=== PATIENT | female | born 1985 | race Caucasian/White ===

== ENCOUNTER 2020-12-29 12:44 | Inpatient (IN) | payer BC ==
[2020-12-29] MEDS ORDERED: Promethazine HCl 25 MG/ML VIAL IM PRN ×2 (13:10→18:31)
[2020-12-29] MEDS ORDERED: HYDROcodone/Acetaminophen 5/325 mg Tablet PO PRN ×2 (13:10)
[2020-12-29] MEDS ORDERED: Diphenoxylate HCl/Atropine Tablet PO PRN ×2 (13:10)
[2020-12-29] MEDS ORDERED: Misoprostol 200 MCG TAB PR PRN ×2 (13:10→18:47)
[2020-12-29] MEDS ORDERED: Ibuprofen 800 MG TAB PO PRN (13:10)
[2020-12-29] MEDS ORDERED: Butorphanol Tartrate 1 MG/ML VIAL SLOW IVP PRN (13:10)
[2020-12-29] MEDS ORDERED: Lidocaine 1% (PF) 30 ML VIAL SC PRN (13:10)
[2020-12-29] MEDS ORDERED: Acetaminophen 500 MG TAB PO PRN (13:10)
[2020-12-29] MEDS ORDERED: Ondansetron PF 4 MG/2 ML Vial IVP PRN ×3 (13:10→18:47)
[2020-12-29] MEDS ORDERED: Docusate 100 MG CAP PO PRN (13:10)
[2020-12-29] MEDS ORDERED: hydrALAZINE 20 MG/ML VIAL SLOW IVP PRN ×3 (13:10→18:54)
[2020-12-29] MEDS ORDERED: NS / Oxytocin 40 units/1000ml 1,000 ML IV PRN (13:10)
[2020-12-29] MEDS ORDERED: Lactated Ringer's 1,000 ML IV SCH (13:15)
[2020-12-29] MEDS ORDERED: Famotidine/PF 20 mg/2ml Vial SLOW IVP PRN (13:24)
[2020-12-29] MEDS ORDERED: Bicitra 30 ML UDCUP PO PRN (13:24)
[2020-12-29] MEDS ORDERED: Magnesium Sulfate 20 gm/500 ml 20 GM/500 ML BAG ONE (13:34)
[2020-12-29 13:40] LABS: #Eosinphils 0.1 10x3/uL (0.0-0.5); #Monocytes 0.7 10x3/uL (0.0-1.1); %Basophils 0.3 % (0.0-2.0); %Eosinophils 0.5 % (0.0-6.0); %Lymphocytes 15.9 % (18.0-47.0); %Monocytes 5.6 % (0.0-10.0); %Neutrophils 76.1 % (40.0-75.0); Hemoglobin 13.7 g/dL (12.0-15.5); Mean Corpuscular HGB CONC 34.7 g/dL (32.0-36.0); Mean Corpuscular Hemoglobin 31.5 pg (27.0-33.0); Mean Corpuscular Volume 90.8 fl (81.6-98.3); Mean Platelet Volume 10.9 fl (7.4-10.4); Platelet Count 227 10x3/uL (150-450); RBC Distribution Width 14.4 % (11.5-14.5); Red Blood Cell (RBC) Count 4.35 10x6/uL (3.90-5.03); White Blood Cell (WBC) Count 13.2 10x3/uL (3.5-10.5)
[2020-12-29 13:43] LABS: Creatinine, Urine 55.47 mg/dL (47-110)
[2020-12-29] MEDS: hydrALAZINE 20 MG/ML VIAL ONE ×2 (14:00→14:01)
[2020-12-29] MEDS ORDERED: Labetalol HCl 100 MG/20 ML VIAL ONE (14:13)
[2020-12-29 14:28] LABS: Hep B Surf Ag Non-Reactive S/CO (NonReactive); Syphilis Antibody Nonreactive (Nonreactive); Syphilis Antibody Index 0.02 S/CO (<1.00 Non-Reactive)
[2020-12-29 14:34] LABS: HBSAg Index 0.13 S/CO (0-0.99)
[2020-12-29 15:04] VITALS: BMI 37.7
[2020-12-29] MEDS ORDERED: Fentanyl 100 MCG/2 ML VIAL ONE (16:21)
[2020-12-29] MEDS ORDERED: Morphine PF 10 MG/10 ML VIAL ONE (16:21)
[2020-12-29] MEDS ORDERED: Ketorolac Tromethamine 30 MG/ML VIAL ONE (16:21)
[2020-12-29] MEDS ORDERED: Ondansetron PF 4 MG/2 ML Vial ONE (16:21)
[2020-12-29] MEDS ORDERED: Dexamethasone 4 mg/ml Vial ONE (16:21)
[2020-12-29] MEDS ORDERED: Phenylephrine 10 MG/ML VIAL ONE (16:21)
[2020-12-29] MEDS ORDERED: Oxytocin 10 UNITS/ML VIAL ONE (16:26)
[2020-12-29] MEDS ORDERED: CEFAZOLIN 2 GM in Premix Bag 1 BAG IVPB SCH (16:30)
[2020-12-29] MEDS ORDERED: Bicitra 30 ML UDCUP ONE (16:47)
[2020-12-29] MEDS ORDERED: ePHEDrine Sulfate 50 MG/10 ML VIAL ONE (17:09)
[2020-12-29 18:03] LABS: pH (Cord, venous) 7.319 (7.250-7.350)
[2020-12-29] MEDS ORDERED: Erythromycin Base 0.5% Oint 1 GM TUBE ONE (18:23)
[2020-12-29] MEDS ORDERED: Phytonadione Neonatal 1 MG/0.5 ML AMP ONE (18:23)
[2020-12-29] MEDS ORDERED: HYDROmorphone 2 MG/ML VIAL SLOW IVP PRN (18:31)
[2020-12-29] MEDS ORDERED: diphenhydrAMINE 50 MG/ML VIAL IVP PRN (18:31)
[2020-12-29] MEDS ORDERED: L&D-Morphine 4 MG/ML VIAL SLOW IVP PRN (18:31)
[2020-12-29] MEDS ORDERED: Promethazine HCl 25 MG SUPP PR PRN (18:31)
[2020-12-29] MEDS ORDERED: Meperidine HCl/PF 25 MG/ML VIAL SLOW IVP PRN (18:31)
[2020-12-29] MEDS ORDERED: Naloxone HCl 0.4 mg/ml Vial IVP PRN ×2 (18:31)
[2020-12-29] MEDS ORDERED: Ondansetron HCl/PF 4 MG/2 ML Vial IVP PRN (18:31)
[2020-12-29] MEDS ORDERED: Naloxone HCl 0.4 mg/ml Vial IV PRN (18:31)
[2020-12-29] MEDS ORDERED: Eucerin (Mineral Oil/Petrolatum,White) 30 gm Jar TOP PRN (18:31)
[2020-12-29] MEDS ORDERED: Communication Order-Pharmacy FS SCH (18:45)
[2020-12-29] MEDS ORDERED: Ketorolac Tromethamine 30 MG/ML VIAL IVP SCH (18:45)
[2020-12-29] MEDS ORDERED: Lanolin Ointment 7 GM TUBE TOP PRN (18:47)
[2020-12-29] MEDS ORDERED: Bisacodyl 10 MG SUPP PR PRN (18:47)
[2020-12-29] MEDS ORDERED: Simethicone Chewable 80 MG TAB PO PRN (18:47)
[2020-12-29] MEDS ORDERED: diphenhydrAMINE 25 MG CAP PO PRN (18:47)
[2020-12-29] MEDS ORDERED: Acetaminophen 325 MG TAB PO PRN (18:47)
[2020-12-29] MEDS ORDERED: Calcium Gluc 4.6 MEQ/10 ML (100 MG/ML) SLOW IVP PRN (18:47)
[2020-12-29] MEDS ORDERED: Adacel (T-DAP) 0.5 ML SYRINGE IM ONE (18:47)
[2020-12-29] MEDS ORDERED: NS / Oxytocin 40 units/1000ml 1,000 ML IV SCH (19:00)
[2020-12-29] MEDS ORDERED: Magnesium Sulfate 20 gm/500 ml 20 GM/500 ML BAG IVPB SCH (19:00)
[2020-12-29] MEDS: Ketorolac Tromethamine 30 MG/ML VIAL IVP PRN (21:35)
[2020-12-29] MEDS: Docusate Calcium (SURFAK) 240 MG CAP PO SCH (21:35)
[2020-12-29] MEDS: Labetalol 100 MG TAB PO SCH (21:35)
[2020-12-29] MEDS: Ferrous Sulfate 325 MG TAB PO SCH (21:55)
[2020-12-30] MEDS: Ketorolac Tromethamine 30 MG/ML VIAL IVP PRN ×2 (04:09→10:06)
[2020-12-30] MEDS ORDERED: HYDROcodone/Acetaminophen 5/325 mg Tablet PO PRN (06:45)
[2020-12-30] MEDS ORDERED: Butorphanol Tartrate 1 MG/ML VIAL SLOW IVP PRN (06:45)
[2020-12-30] MEDS ORDERED: Meperidine HCl/PF 25 MG/ML VIAL IM PRN (06:45)
[2020-12-30 06:57] LABS: Hemoglobin 9.6 g/dL (12.0-15.5); Mean Corpuscular HGB CONC 33.7 g/dL (32.0-36.0); Mean Corpuscular Volume 91.9 fl (81.6-98.3); Mean Platelet Volume 10.6 fl (7.4-10.4); Platelet Count 192 10x3/uL (150-450); RBC Distribution Width 14.5 % (11.5-14.5); White Blood Cell (WBC) Count 14.2 10x3/uL (3.5-10.5)
[2020-12-30 06:59] LABS: SARS-CoV-2 PCR by NAA Not Detected (NotDetected)
[2020-12-30] MEDS: Ferrous Sulfate 325 MG TAB PO SCH ×2 (09:28→21:45)
[2020-12-30] MEDS: Prenatal Vitamin 1 TAB PO SCH (09:28)
[2020-12-30] MEDS: Docusate Calcium (SURFAK) 240 MG CAP PO SCH ×2 (09:28→21:45)
[2020-12-30] MEDS: Lactated Ringer's 1,000 ML IV SCH ×2 (09:28→14:41)
[2020-12-30] MEDS: Labetalol 100 MG TAB PO SCH ×3 (09:45→21:46)
[2020-12-30] MEDS: Ibuprofen 800 MG TAB PO SCH (21:45)
[2020-12-31] MEDS: Lactated Ringer's 1,000 ML IV SCH ×3 (05:58→21:22)
[2020-12-31] MEDS: Ibuprofen 800 MG TAB PO SCH ×3 (05:59→21:36)
[2020-12-31] MEDS: Labetalol 100 MG TAB PO SCH ×2 (08:28→21:36)
[2020-12-31] MEDS: Prenatal Vitamin 1 TAB PO SCH (08:28)
[2020-12-31] MEDS: Ferrous Sulfate 325 MG TAB PO SCH ×2 (08:28→21:36)
[2020-12-31] MEDS: Docusate Calcium (SURFAK) 240 MG CAP PO SCH ×2 (08:28→21:36)
[2020-12-31] MEDS: HYDROcodone/Acetaminophen 5/325 mg Tablet PO PRN ×2 (08:31→13:23)
[2021-01-01] MEDS: Ibuprofen 800 MG TAB PO SCH ×2 (05:36→14:05)
[2021-01-01] MEDS: Lactated Ringer's 1,000 ML IV SCH (07:35)
[2021-01-01] MEDS: Labetalol 100 MG TAB PO SCH (08:28)
[2021-01-01] MEDS: Ferrous Sulfate 325 MG TAB PO SCH (08:28)
[2021-01-01] MEDS: Docusate Calcium (SURFAK) 240 MG CAP PO SCH (08:28)
[2021-01-01] MEDS: Prenatal Vitamin 1 TAB PO SCH (08:29)
[2021-01-01 11:34] VITALS: BP 140/87; TEMP 99.2
== END 2021-01-01 14:20 | disposition home or self-care (01) | DRG 788 ==
LOC: CSHLD/OP 12:44 → CSHLD 13:17 → CSHANTE 12-30 08:30
PROVIDERS: ADMIT Obstetrics & Gynecology; ATTEND Obstetrics & Gynecology
PROC: 10D00Z1 Extraction of Products of Conception, Low, Open Approach (ICD-10-PCS; principal; 2020-12-29)
DX: O36.5930 Maternal care for other known or suspected poor fetal growth, third trimester, not applicable or unspecified (principal); O14.14 Severe pre-eclampsia complicating childbirth; Z37.0 Single live birth; Z3A.36 36 weeks gestation of pregnancy; O99.02 Anemia complicating childbirth; D64.9 Anemia, unspecified; O13.4 Gestational [pregnancy-induced] hypertension without significant proteinuria, complicating childbirth; O32.1XX0 Maternal care for breech presentation, not applicable or unspecified; Z20.822 Contact with and (suspected) exposure to COVID-19; O69.81X0 Labor and delivery complicated by cord around neck, without compression, not applicable or unspecified
CPT/HCPCS: 36415; 51702; 82570; 82805; 83615; 84156; 84450; 84460; 84550; 85025; 85027; 86780; 86850; 86900; 86901; 87340; 87635; 88307; J0360; J0690; J1100; J1200; J1885; J2274; J2370; J2405; J3010; J3475; U0003; U0005